=== PATIENT | female | born 1995 | race Caucasian/White ===

== ENCOUNTER 2023-08-18 11:19 | Emergency (ER) | payer BC ==
[2023-08-18] MEDS ORDERED: Dexamethasone 4 MG/ML SDV IM ONE (12:12)
== END 2023-08-18 12:25 | disposition home or self-care (01) ==
LOC: DL.ED 11:19
DX: G44.209 Tension-type headache, unspecified, not intractable (principal)
CPT/HCPCS: 70450; 96372; 99284; J1100

== ENCOUNTER 2024-01-13 22:05 | Emergency (ER) | payer BC ==
[2024-01-13] MEDS ORDERED: Amoxicillin/Clavulanate K 875-125 MG Tab PO ONE (22:06)
[2024-01-13 23:01] LABS: BASOPHILS PERCENT AUTO 0.1 % (0.0-1.0); EOSINOPHILS PERCENT AUTO 0.1 % (1.0-3.0); HEMATOCRIT 33.5 % (37.0-47.0); HEMOGLOBIN 11.5 g/dL (12.0-16.0); LYMPHOCYTES PERCENT AUTO 8.9 % (20.5-50.1); MEAN CORPUSCULAR HEMOGLOBIN 29.7 pg (27.0-34.0); MEAN CORPUSCULAR HGB CONC 34.3 g/dL (33.0-35.0); MEAN CORPUSCULAR VOLUME 86.6 fL (80-100); MONOCYTES PERCENT AUTO 6.9 % (2-8); PLATELET COUNT,PLT 215 10^3/uL (150-450); RED BLOOD CELL COUNT 3.87 10^6/uL (4.2-5.4); WHITE BLOOD CELL COUNT,WBC 9.6 10^3/uL (5.0-10.0)
[2024-01-13] MEDS: Orphenadrine 60 MG/2 ML Inj IV ONE (23:03)
[2024-01-13] MEDS: Lactated Ringers 1,000 ML IV ONE (23:06)
[2024-01-13] MEDS: Metoclopramide 10 MG/2 ML SDV IVPUSH ONE (23:11)
[2024-01-13 23:19] LABS: A/G RATIO 0.93; ALBUMIN 2.8 g/dL (3.4-5.0); ANION GAP 9.3 mEq/L (7-13); BILIRUBIN TOTAL 0.2 mg/dL (0.2-1.0); BUN/CREATININE RATIO 9.9 (No establ ref range); CREATININE 0.71 mg/dL (0.55-1.02); EST CRCL DRUG DOSING (CG) 100.05 mL/min; POTASSIUM,K 3.3 mmol/L (3.5-5.1); PROTEIN TOTAL,TP 5.8 g/dL (6.4-8.2)
[2024-01-13 23:20] LABS: APPEARANCE,URINE CLEAR (CLEAR); BILIRUBIN,URINE NEGATIVE (NEGATIVE); COLOR,URINE YELLOW (YELLOW); GLUCOSE,URINE NEGATIVE (NEGATIVE); KETONES,URINE NEGATIVE (NEGATIVE); LEUKOCYTE ESTERASE,URINE NEGATIVE (NEGATIVE); NITRITE,URINE NEGATIVE (NEGATIVE); OCCULT BLOOD,URINE TRACE-INTACT (NEGATIVE); PH,URINE 7.5 (5.0-9.0); PROTEIN,URINE NEGATIVE (NEGATIVE); UROBILINOGEN,URINE 0.2 mg/dL (0.2-1.0)
[2024-01-13 23:27] LABS: AMORPHOUS SEDIMENT,URINE FEW /HPF (NOT SEEN); BACTERIA,URINE MODERATE /HPF (0-FEW/HPF); EPITHELIAL CELLS,URINE MODERATE /HPF (NOT SEEN); MUCUS,URINE MODERATE /LPF (NOT SEEN); WBC,URINE 0-5 /HPF (0-5/HPF)
[2024-01-14] MEDS: Iopamidol 612 MG/ML 100 ML Bottle IVPUSH ONE (00:16)
[2024-01-14] MEDS: Amoxicillin/Clavulanate K 875-125 MG Tab PO ONE (02:24)
[2024-01-14] MEDS: Amoxicillin/Clavulanate K 875-125 MG Tab ONE (02:44)
== END 2024-01-14 02:45 | disposition home or self-care (01) ==
LOC: DL.ED 22:05
DX: K52.9 Noninfective gastroenteritis and colitis, unspecified (principal)
CPT/HCPCS: 36415; 74177; 80053; 81001; 81025; 85025; 96361; 96374; 96375; 99284; A9270; J2360; J2765; J7120; Q9967